=== PATIENT | female | born 1960 | race Caucasian/White ===

== ENCOUNTER 2018-05-15 21:01 | Emergency (ER) | payer BC ==
[~2018-05-15] VITALS: Ht 170.2 cm; Wt 63.5 kg
[2018-05-15] MEDS ORDERED: LEVOTHYROXINE 50 MCG TABLET (21:27)
[2018-05-15] MEDS ORDERED: ONDANSETRON 4 MG/2 ML VIAL IV ONE (21:30)
[2018-05-15] MEDS ORDERED: IV NORMAL SALINE 1000 ML BAG IV ONE (21:30)
--- NOTE | 2018-05-15 21:30 | NUR ---
PATIENT AAOX4/ MAEX4,CAME FOR DIZZINESS /WEAKNESS FELT AT 1999 .VERBALLY RESPONSIVE ,COHERENT . NO NEURO ASSESSMENT DONE INTACT NO NEUROGICAL DIFICITS NOTED .
--- NOTE | 2018-05-15 21:35 | NUR ---
DR:JERROD IN ROOM 2B ,EXAMINED PATIENT .
[2018-05-15 21:44] LABS: BASOPHILS # (AUTO) 0.1 K/uL (0.0-8.0); EOSINOPHILS % (AUTO) 0.8 % (0.0-7.0); HEMATOCRIT 38.9 % (31.2-41.9); HEMOGLOBIN 13.4 g/dL (10.9-14.3); LYMPHOCYTES % (AUTO) 33.1 % (20.5-51.5); MEAN CORPUSCULAR HEMOGLOBIN 33.5 uug (24.7-32.8); MEAN CORPUSCULAR HGB CONC 34 g/dL (32.3-35.6); MEAN CORPUSCULAR VOLUME 97.4 fL (75.5-95.3); MONOCYTES # (AUTO) 0.5 K/uL (2.0-10.0); MONOCYTES % (AUTO) 7.6 % (0.0-11.0); NEUTROPHILS # (AUTO) 3.4 K/uL (1.8-8.9); NEUTROPHILS % (AUTO) 57.5 % (38.5-71.5); PLATELET COUNT (AUTO) 199 K/uL (179-408); RED BLOOD CELL COUNT(AUTO) 3.99 MIL/uL (3.63-4.92); WHITE BLOOD COUNT (AUTO) 5.9 K/uL (3.8-11.8)
[2018-05-15] MEDS ORDERED: ONDANSETRON 4 MG/2 ML VIAL ONE (21:52)
[2018-05-15 21:54] LABS: POTASSIUM 3.6 mmol/L (3.5-5.1)
[2018-05-15 22:10] LABS: BILIRUBIN,TOTAL 0.4 mg/dL (0.1-1.0)
[2018-05-15 22:11] LABS: BILIRUBIN,DIRECT 0.1 mg/dL (0.0-0.2); TOTAL PROTEIN, SERUM 7.5 g/dL (6.4-8.2)
--- NOTE | 2018-05-15 22:30 | NUR ---
Patient discharged to home in stable conditon. Written and verbal after care instructions given. Patient verbalizes understanding of instructions.V/S WNL .NO RESPIRATORY DISTRESS. D/C [facility] . WENT HOME WALKING WITH 2 FRIENDS .
[2018-05-15 23:15] VITALS: BP 158/78
== END 2018-05-15 22:45 | disposition home or self-care (01) ==
LOC: ER 21:04
DX: R55 Syncope and collapse (principal); K58.9 Irritable bowel syndrome, unspecified; Z88.0 Allergy status to penicillin
CPT/HCPCS: 36415; 70030-TC; 85025; 93005; A4663; J2405; J7030